=== PATIENT | male | born 1930 | race Caucasian/White ===

== ENCOUNTER → 2016-12-24 | Outpatient (CLI) | payer MEDICARE ==
[~2016-12-24] MED LIST: ACET500T71 PO; ASCO10007 PO; ASCO500C2 PO; ASPI-496 PO; ASPI325T4 PO; ASPI325T92 PO; CLOP75TA PO; CYAN100028 PO; DOCU100T6 PO; FOLI0.8T2 PO; FURO-93 PO; LACT1CAP35 PO; LANS15CA5 PO; METO50TA11 PO; METO50TA3 PO; MULT-82 PO; NITR0.4T8 SL; POTA99TA PO; RANO500T2 PO; RED KRILL OIL PO; SIME125C PO; SPIR25TA PO; TERA10CA3 PO; [UNRECOGNIZED DRUG - CODE] PO; [UNRECOGNIZED DRUG - CODE] PO; [UNRECOGNIZED DRUG - OTHER] PO
== END | disposition home or self-care (01) ==
LOC: CFH 15:39
PROVIDERS: ATTEND Physician Assistant
DX: I08.3 Combined rheumatic disorders of mitral, aortic and tricuspid valves (principal); Z95.5 Presence of coronary angioplasty implant and graft
CPT/HCPCS: 93306

== ENCOUNTER 2017-03-23 06:49 | Emergency (ER) | payer MEDICARE ==
[~2017-03-23] VITALS: Ht 165.1 cm; Wt 77.0 kg
[~2017-03-23 06:49] MED LIST changes: +ASCO100019 PO; -ASCO10007 PO; +ASPI325T17 PO; -ASPI325T4 PO; +METO-264 PO; -METO50TA11 PO; +MULT-224 PO; -MULT-82 PO; +NITR0.4T28 SL; -NITR0.4T8 SL; -POTA99TA PO; +POTA99TA2 PO
[2017-03-23] MEDS ORDERED: SODIUM CHLORIDE 0.9% 1,000ML IVBOLUS ONE (07:30)
[2017-03-23] MEDS ORDERED: SODIUM CHLORIDE FLUSH 10ML SYR IVF ONE (07:30)
[2017-03-23 07:37] LABS: HEMATOCRIT 41.1 % (39.2-51.8); HEMOGLOBIN 14.1 g/dL (13.7-18.0); WHITE BLOOD COUNT 6.3 x10^3/uL (3.4-10)
[2017-03-23 07:47] LABS: ASPARTATE AMINO TRANSFERASE 18 U/L (15-37); BLOOD UREA NITROGEN 23 mg/dL (7-18)
[2017-03-23 07:52] LABS: IS PT STATUS REG ER OR PRE ER? YES
[2017-03-23 09:06] VITALS: BP 107/70
== END 2017-03-23 09:10 | disposition home or self-care (01) ==
LOC: ED 07:58
DX: R00.0 Tachycardia, unspecified (principal); R19.7 Diarrhea, unspecified; I10 Essential (primary) hypertension; Z87.891 Personal history of nicotine dependence; I25.2 Old myocardial infarction
CPT/HCPCS: 36415; 71010; 80053; 83690; 84484; 85025; 93005; 96360; 99285; J7030